=== PATIENT | female | born 1960 | race Two or more races ===

== ENCOUNTER 2021-01-12 15:09 | Emergency (ER) | payer OTHER ==
[~2021-01-12] VITALS: Ht 144.8 cm; Wt 77.1 kg
[2021-01-12] MEDS ORDERED: COZAAR50 MG PO (15:35)
[2021-01-12] MEDS ORDERED: GLUMETZA500 MG PO (15:35)
[2021-01-12] MEDS ORDERED: BACTRIM DS TAB1 EACH PO (19:34)
== END 2021-01-12 19:46 | disposition home or self-care (01) ==
LOC: ER 15:09
DX: K57.90 Diverticulosis of intestine, part unspecified, without perforation or abscess without bleeding (principal); M54.2 Cervicalgia; R10.31 Right lower quadrant pain; N39.0 Urinary tract infection, site not specified

== ENCOUNTER 2021-04-26 06:41 | Outpatient (CLI) | payer OTHER ==
[~2021-04-26 06:41] MED LIST: BACTRIM DS TAB1 EACH PO; COZAAR50 MG PO; GLUMETZA500 MG PO
== END 2021-04-26 06:56 | disposition home or self-care (01) ==
LOC: LAB 06:41
DX: E03.8 Other specified hypothyroidism (principal); I10 Essential (primary) hypertension; N39.0 Urinary tract infection, site not specified; E11.21 Type 2 diabetes mellitus with diabetic nephropathy; G47.33 Obstructive sleep apnea (adult) (pediatric); E78.00 Pure hypercholesterolemia, unspecified; D26.9 Other benign neoplasm of uterus, unspecified

== ENCOUNTER 2021-04-26 07:32 | Outpatient (CLI) | payer OTHER | END 2021-04-26 12:58 | disposition home or self-care (01) | LOC: SONOGRAMA 07:32 → MAMO-SONO 08:15 → SONOGRAMA 12:58 | DX: N28.89 Other specified disorders of kidney and ureter (principal); I10 Essential (primary) hypertension; M25.511 Pain in right shoulder ==

== ENCOUNTER 2023-01-15 09:55 | Emergency (ER) | payer OTHER ==
[~2023-01-15] VITALS: Ht 147.3 cm; Wt 74.4 kg
[2023-01-15] MEDS ORDERED: SYNTHROID50 MCG PO (10:28)
[2023-01-15] MEDS ORDERED: IRBESARTAN150 MG PO (10:28)
[2023-01-15] MEDS ORDERED: METFORMIN HCL500 M1 PO (10:28)
== END 2023-01-15 12:08 | disposition home or self-care (01) ==
LOC: ER 09:55
DX: R07.9 Chest pain, unspecified (principal); E11.9 Type 2 diabetes mellitus without complications; Z79.84 Long term (current) use of oral hypoglycemic drugs; Z88.0 Allergy status to penicillin; Z88.6 Allergy status to analgesic agent; K21.9 Gastro-esophageal reflux disease without esophagitis; I10 Essential (primary) hypertension; E78.00 Pure hypercholesterolemia, unspecified; E03.9 Hypothyroidism, unspecified

== ENCOUNTER 2024-09-14 11:05 | Emergency (ER) | payer OTHER ==
[~2024-09-14] VITALS: Ht 147.3 cm; Wt 64.9 kg
[~2024-09-14 11:05] MED LIST changes: +IRBESARTAN150 MG PO; +METFORMIN HCL500 M1 PO; +SYNTHROID50 MCG PO
[2024-09-14 14:00] LABS: HEMATOCRIT 40.7 % (36.0-45.00); HEMOGLOBIN 13.8 g/dL (12.0-15.00); MEAN CELL VOLUME 92.5 fL (80.00-100.00); MEAN CORPUSCULAR HEMOGLOBIN 31.4 pg (27.00-32.0); MEAN CORPUSCULAR HGB CONC 33.9 g/dl (32.0-36.0); PLATELET COUNT 271 K/uL (150-450); RED BLOOD COUNT 4.41 M/uL (4.00-6.00); RED CELL DISTRIBUTION WIDTH 14.3 % (11.5-14.5)
[2024-09-14 14:24] LABS: ALBUMIN 3.7 gm/dL (3.4-5.0); BILIRUBIN TOTAL 0.54 mg/dL (0.3-1.2); CALCIUM 10.2 mg/dL (8.5-10.1); CREATININE SERUM 0.66 mg/dL (0.55-1.02); GFR 89.88; GLOBULINA 3.4 G/DL (2.4-3.5); POTASSIUM 3.78 mEq/L (3.5-5.1); TOTAL PROTEIN 7.1 gm/dL (6.4-8.2)
== END 2024-09-14 16:24 | disposition home or self-care (01) ==
LOC: ER 11:08
PROVIDERS: General Practice
DX: R10.9 Unspecified abdominal pain (principal); I10 Essential (primary) hypertension; E03.8 Other specified hypothyroidism; Z91.013 Allergy to seafood; Z91.018 Allergy to other foods; E11.9 Type 2 diabetes mellitus without complications; Z79.84 Long term (current) use of oral hypoglycemic drugs